=== PATIENT | female | born 1955 | race African-American/Black ===

== ENCOUNTER 2022-03-06 10:56 | Outpatient (CLI) | payer MEDICARE, SELFPAY ==
--- NOTE | ~2022-03-06 | XR_ITS ---
XR hand BI arthritis min 3V DATE: 03/06/2022 11:52 INDICATION: Psoriasis TECHNIQUE: 4 views of each hand COMPARISON: None FINDINGS: No fracture or dislocation, periosteal reaction or bone destruction, erosive change or pradeep drocalcinosis. Joint spaces are relatively well preserved. IMPRESSION: No significant abnormality Reviewed, dictated and finalized at location B. ET BRAIDER IMPRESSION: No significant abnormality
--- NOTE | ~2022-03-06 | XR_ITS ---
XR foot LT standing 2V DATE: 03/06/2022 11:52 INDICATION: Psoriasis TECHNIQUE: Standing AP and lateral views COMPARISON: None FINDINGS: There is mild plantar and posterior calcaneal enthesopathy without evidence of erosive randhawa ge or periostitis. Mild osteoarthritis at the first metatarsophalangeal joint and second through fourth digit interphala ngeal joints. Probable resection of the distal aspect of the proximal phalanx of the fifth toe. No fracture or dislocation, periosteal reaction or bone destruction. IMPRESSION: Mild polyarticular osteoarthritis Mild plantar and posterior calcaneal enthesopathy Reviewed, dictated and finalized at location B. RANCE INSTRUCTOR
--- NOTE | ~2022-03-06 | XR_ITS ---
XR foot RT standing 2V DATE: 03/06/2022 11:53 INDICATION: Psoriasis TECHNIQUE: Standing AP and lateral views COMPARISON: None FINDINGS: Mild posterior and slight plantar calcaneal enthesopathy without associated erosive change or periostitis. No fracture or dislocation, periosteal reaction or bone destruction, erosive change. IMPRESSION: Mild posterior and slight plantar calcaneal enthesopathy Reviewed, dictated and finalized at location B. ET SAWYER
--- NOTE | ~2022-03-06 | XR_ITS ---
XR sacroiliac joints min 3V DATE: 03/06/2022 11:53 INDICATION: Psoriasis TECHNIQUE: AP and bilateral oblique views COMPARISON: None FINDINGS: There is mild sclerotic degenerative change at the sacroiliac joints, greater on the right. No erosive change or ankylosis is detected. No sacroiliac fracture or dislocation. IMPRESSION: Mild degenerative changes Reviewed, dictated and finalized at Location A. Reviewed, dictated and finalized at location B. RT PRE COOKER IMPRESSION: Mild degenerative changes
--- NOTE | ~2022-03-06 | XR_ITS ---
XR lumbar spine min 4V DATE: 03/06/2022 11:53 INDICATION: Psoriasis TECHNIQUE: AP, lateral, bilateral oblique views, coned lateral lumbosacral view COMPARISON: None FINDINGS: There is degenerative change at the apophyseal joints particularly at L4-5 and L5-S1, with associated grade 1 anterolisthesis at L4-5. There is mild degenerative spurring of the lower thoracic and lumbar spine. Lumbar and lumbosacral in terspaces appear relatively well preserved. No spondylolysis. The sacroiliac joints are intact, witho ut erosive change or ankylosis. Calcification of the abdominal aorta and common iliac arteries, without evidence of aneurysm IMPRESSION: Mild degenerative spurring of lower thoracic and lumbar spine, but with preservation of l umbar and lumbosacral interspaces Degenerative changes of apophyseal joints at lower lumbar and lumbosacral area with associated grade 1 anterolisthesis at L4-5 Reviewed, dictated and finalized at location B. RUMENT TESTER IMPRESSION: Mild degenerative spurring of lower thoracic and lumbar spine, but with preservation of lumbar and lumbosacral interspaces Degenerative changes of apophyseal joints at lower lumbar and lumbosacral area with associated grade 1 anterolisthesis at L4-5
[2022-03-06 12:18] LABS: Rheumatoid Factor < 8.6 IU/ML (<12)
[2022-03-06 12:44] LABS: Vitamin D 25 Hydroxy 31.9 ng/mL
[2022-03-08 21:46] LABS: Anti Cyclic Citrullinated Pept <16 Units (<20)
== END 2022-03-06 10:57 | disposition home or self-care (01) ==
PROVIDERS: Visit Provider Internal Medicine
DX: L40.9 Psoriasis, unspecified (principal); M47.818 Spondylosis without myelopathy or radiculopathy, sacral and sacrococcygeal region; M47.816 Spondylosis without myelopathy or radiculopathy, lumbar region; M47.817 Spondylosis without myelopathy or radiculopathy, lumbosacral region; M77.31 Calcaneal spur, right foot; M77.32 Calcaneal spur, left foot; M15.9 Polyosteoarthritis, unspecified; Z71.89 Other specified counseling; Z79.899 Other long term (current) drug therapy
CPT/HCPCS: 36415; 72110; 72202; 73130; 73620; 82306; 86038; 86200; 86430